=== PATIENT | male | born 1950 | race Caucasian/White ===

== ENCOUNTER 2020-09-13 08:09 | Day surgery (SDC) | payer MEDICARE, SELFPAY ==
[2020-09-10 10:58] VITALS: BMI 18.0
--- NOTE | 2020-09-12 10:39 | HO.ANESPROP2 ---
HPI - Anesthesia Eval Consult details Narrative: 69yo M for Upper Endoscopy and Colonoscopy daily opioids PMFSH Past Medical History Medical History (Updated 09/09/20 @ 16:40 by Rosa Hurtado) Abdominal pain ADHD (attention deficit hyperactivity disorder) Bipolar 1 disorder COPD (chronic obstructive pulmonary disease) Diarrhea Heartburn History of nephrolithiasis Hx of hepatitis C IBS (irritable bowel syndrome) Restless legs syndrome (RLS) Surgical History Surgical History History of esophagogastroduodenoscopy (EGD) History of tonsillectomy and adenoidectomy Hx of appendectomy Hx of colonoscopy Hx of right inguinal hernia repair Hx of rotator cuff surgery Social History Social History Patient Tobacco Use Status: Former Tobacco user Quit Date: 08/20/2020 Tobacco use type: Cigarette Cigarette Packs Per Day: 2 Cigarettes Per Day: 40.0 Smoked in Last 30 Days: Yes Use of substances other than those prescribed or required for medical reasons: No Are you DNR?: No Advance Directives: No Advance Directives Information Provided: No Advance Directives on File: No Meds Allergies Allergy/AdvReac Type Severity Reaction Status Date / Time No Known Allergies Allergy Verified 09/10/20 10:58 Home Medications Medication Instructions Recorded Confirmed Last Taken Type acetaminophen-codeine 1 tab PO TID 09/09/20 09/09/20 Unknown History albuterol sulfate 2 puff INHALATION Q4H PRN 09/09/20 09/09/20 Unknown History ecjyvbmbwz-yuyzwglnyynlo-ggfq tab PO 09/09/20 Unknown History clonazepam 1 tab PO BID 09/09/20 09/09/20 09/13/20 History dextroamphetamine-amphetamine 1 tab PO BID 09/09/20 09/09/20 Unknown History omeprazole 1 cap PO DAILY 09/09/20 09/09/20 Unknown History tamsulosin 0.4 mg PO DAILY 09/09/20 09/10/20 Unknown History zolpidem 1 tab PO BEDTIME PRN 09/09/20 09/09/20 Unknown History Exam Exam Date and Time: September 12, 2020 1039 Height,Weight and Vital Signs: Height 6 ft Weight 60.328 kg Assessment and Plan Assessment Anesthesia Assessment: Chart Reviewed
[2020-09-13 08:44] VITALS: BP 104/64; PULSE 54; RESP 16; TEMP 36.3; O2SAT 98
[2020-09-13] MEDS: Sodium Phosphate,Mono-Dibasic 133 ML ENEMA PR (08:50)
--- NOTE | 2020-09-13 08:51 | PC.NURSE ---
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 HAS DONE IN THE PAST PER PATIENT.
--- NOTE | 2020-09-13 09:02 | PC.NURSE ---
YELLOW OUPUT IN TOILET. NO BLACK STOOL NOTED.
--- NOTE | 2020-09-13 09:08 | P.CONAN_ITS ---
[facility] Past Medical History Medical History (Updated 09/09/20 @ 16:40 by Rosa Hurtado) Abdominal pain ADHD (attention deficit hyperactivity disorder) Bipolar 1 disorder COPD (chronic obstructive pulmonary disease) Diarrhea Heartburn History of nephrolithiasis Hx of hepatitis C IBS (irritable bowel syndrome) Restless legs syndrome (RLS) Surgical History Surgical History History of esophagogastroduodenoscopy (EGD) History of tonsillectomy and adenoidectomy Hx of appendectomy Hx of colonoscopy Hx of right inguinal hernia repair Hx of rotator cuff surgery Social History Social History Patient Tobacco Use Status: Former Tobacco user Quit Date: 08/20/2020 Tobacco use type: Cigarette Cigarette Packs Per Day: 2 Cigarettes Per Day: 40.0 Smoked in Last 30 Days: Yes Use of substances other than those prescribed or required for medical reasons: No Are you DNR?: No Advance Directives: No Advance Directives Information Provided: No Advance Directives on File: No Meds Allergies Allergy/AdvReac Type Severity Reaction Status Date / Time No Known Allergies Allergy Verified 09/10/20 10:58 Active Medications: Current Medications Generic Name Dose Route Start Last Admin Trade Name Freq PRN Reason Stop Dose Admin Albuterol Sulfate 2.5 mg 09/13/20 06:17 Albuterol Sulfate (0.083%) 2.5 Mg/3 Ml Vial.Neb INHALE ONCE PRN Shortness of Breath/Wheezing Lactated Ringer's 1,000 mls @ 100 mls/hr 09/13/20 06:30 Lr IVCONT .Q10H [facility] Home Medications Medication Instructions Recorded Confirmed Last Taken Type acetaminophen-codeine 1 tab PO TID 09/09/20 09/09/20 Unknown History albuterol sulfate 2 puff INHALATION Q4H PRN 09/09/20 09/09/20 Unknown History hcomlgihlv-fgcxqwlgkdewc-ziri tab PO 09/09/20 Unknown History clonazepam 1 tab PO BID 09/09/20 09/09/20 09/13/20 History dextroamphetamine-amphetamine 1 tab PO BID 09/09/20 09/09/20 Unknown History omeprazole 1 cap PO DAILY 09/09/20 09/09/20 Unknown History tamsulosin 0.4 mg PO DAILY 09/09/20 09/10/20 Unknown History zolpidem 1 tab PO BEDTIME PRN 09/09/20 09/09/20 Unknown History Exam Exam Date and Time: September 13, 2020 0908 Height,Weight and Vital Signs: Height 6 ft Weight 60.328 kg Last Vital Signs Temp 97.3 F 09/13/20 08:44 Pulse 54 09/13/20 08:44 Resp 16 09/13/20 08:44 BP 104/64 09/13/20 08:44 Pulse Ox 98 09/13/20 08:44 Airway Mallampati Class: III TM Dist: >3cm Neck ROM: Full Heart: RRR Lungs: CTA
--- NOTE | 2020-09-13 09:10 | MHC.SHP ---
Pre-Procedural Eval Section A Date of Service: 09/13/20 The patient is an INPATIENT: No Changes since office visit: No Cold of Flu in the past 2 weeks, No New Medical Problems, No Changes in Medication and No Patient answered all questions The History & Physical has been completed within 30 days and I have reviewed it.: Yes Section B Chief Complaint: abnormal weight loss Allergies: Allergies Allergy/AdvReac Type Severity Reaction Status Date / Time No Known Allergies Allergy Verified 09/10/20 10:58 Plan I have reviewed the history and physical and performed a pertinent physical examination on my patient. No changes have occurred unless specified.
[2020-09-13] MEDS: Lactated Ringers 1,000 ML 100 ML IVCONT (09:13)
[2020-09-13 09:52] VITALS: BP 92/42; PULSE 96; RESP 16; TEMP 36.8; O2SAT 100
--- NOTE | 2020-09-13 09:57 | P.BOP_ITS ---
Brief Operative Note Date of Service: 09/13/20 Pre-op diagnosis: abd pain wt loss Post-op diagnosis: same Surgeon: Rolo Kessler Was an Cath Lab Radiological Technologist used for this Procedure?: No Estimated blood loss (mL): 5 Pathology: other (see req) Condition: stable Disposition: PACU
[2020-09-13 10:07] VITALS: BP 111/48; PULSE 75; RESP 18; O2SAT 98
[2020-09-13 10:22] VITALS: BP 112/57; PULSE 84; RESP 18; TEMP 36.8; O2SAT 99
--- NOTE | 2020-09-13 10:24 | OP_ITS ---
SURGEON: Rolo Kessler MD INDICATIONS: Abdominal pain and weight loss. PREOPERATIVE DIAGNOSIS: POSTOPERATIVE DIAGNOSIS: PROCEDURE PERFORMED: Upper endoscopy with biopsy, colonoscopy to the terminal ileum with biopsy. ESTIMATED BLOOD LOSS: COMPLICATIONS: ANESTHESIA: ASSISTANTS: SPECIMENS: MEDICATIONS: Monitored anesthesia care. DESCRIPTION OF PROCEDURE: History and physical performed. The risks and benefits of the procedure were explained to the patient. Informed consent was obtained. The patient was placed in the left lateral decubitus position. A digital rectal exam was performed and was found to be normal. The Olympus pediatric video gastroscope was introduced into the esophagus, stomach, and duodenum. Examination was performed and the scope was removed. He was repositioned for colonoscopy. The Olympus pediatric video colonoscope was introduced into the rectum and advanced to the cecum without difficulty. The cecum was identified by transillumination, palpation, and identification of ileocecal valve. Examination was performed and the scope was removed. He tolerated the procedure well and was taken to recovery area in stable condition. FINDINGS: UPPER ENDOSCOPY: Esophagus: The esophagus was normal. There was no esophagitis. Stomach: The stomach showed no evidence of masses or ulcers. A single gastric polyp was identified and biopsied. Antral biopsies were obtained. Biopsies were also obtained from the EG junction. Duodenum: The bulb and second portion were normal. Biopsies were obtained because of the patient's weight loss. COLONOSCOPY: The terminal ileum was normal. This was biopsied. There was no evidence of Crohn disease. The visualized colonic mucosa was normal. There was some liquid stool and undigested material, which limited the sensitivity examination for detection of small polyps. This was washed and suctioned. No polyps were identified. There was sigmoid diverticulosis with scattered diverticula throughout the remainder of the colon. Retroflexed examination showed moderate-sized internal hemorrhoids. IMPRESSION: 1. Gastric polyp. 2. Normal colonoscopy. RECOMMENDATION: Follow up the biopsy results. Repeat colonoscopy in 3 years due to prep limitations. MD KIN Curry/SUZI / [id number] MTDD
== END 2020-09-13 10:53 | disposition home or self-care (01) ==
PROVIDERS: PCP Internal Medicine; Visit Provider Internal Medicine Gastroenterology
PROC: (CPT 45380; principal; 2020-09-13 09:20)
DX: R63.4 Abnormal weight loss (principal); R10.9 Unspecified abdominal pain; K57.30 Diverticulosis of large intestine without perforation or abscess without bleeding; K64.8 Other hemorrhoids; K31.7 Polyp of stomach and duodenum; R12 Heartburn; K58.9 Irritable bowel syndrome, unspecified; J44.9 Chronic obstructive pulmonary disease, unspecified; F31.9 Bipolar disorder, unspecified; F90.9 Attention-deficit hyperactivity disorder, unspecified type; Z86.19 Personal history of other infectious and parasitic diseases; F17.210 Nicotine dependence, cigarettes, uncomplicated; Z79.899 Other long term (current) drug therapy
CPT/HCPCS: 45380; 43239; 88305; 88342